=== PATIENT | female | born 2000 | race Caucasian/White ===

== ENCOUNTER 2021-12-05 11:50 | Inpatient (IN) ==
[~2021-12-05 11:50] MED LIST: Azithromycin 500 MG in 0.9 % Sodium Chloride 250 ML IVPB PRN; CeFAZolin 2,000 MG/120 ML BAG IVPB ONE; Famotidine 20 MG/2 ML VIAL IVP ONE; Metoclopramide 10 MG/2 ML VIAL IVP ONE
[2021-12-05] MEDS ORDERED: Acetaminophen IV 1,000 MG/100 ML BAG IVPB PRN (12:09)
[2021-12-05] MEDS ORDERED: *HR* Meperidine 25 MG/ML SYRINGE IVP PRN (12:09)
[2021-12-05] MEDS ORDERED: *HR* HYDROmorphone PF 0.5 MG/0.5 ML SYRINGE IVP PRN (12:09)
[2021-12-05] MEDS ORDERED: *HR* Labetalol 20 MG/4 ML SYRINGE IVP PRN (12:09)
[2021-12-05] MEDS ORDERED: Promethazine 6.25 MG in Water for inj. (sterile) 20 ML IVPB PRN (12:09)
[2021-12-05] MEDS ORDERED: *HR* FentaNYL (PF) 100 MCG/2 ML VIAL ONE (12:17)
[2021-12-05] MEDS ORDERED: EPHEDrine 50 MG/ML VIAL ONE (12:17)
[2021-12-05] MEDS ORDERED: *HR* Morphine Sulfate/PF 10 MG/10 ML AMPUL ONE (12:17)
[2021-12-05] MEDS ORDERED: Ondansetron 4 MG/2 ML VIAL ONE (12:17)
[2021-12-05] MEDS ORDERED: *HR* Phenylephrine 10 MG/ML VIAL ONE (12:17)
[2021-12-05] MEDS ORDERED: *HR* Midazolam HCl 2 MG/2 ML VIAL ONE (12:18)
[2021-12-05] MEDS ORDERED: Ringers Solution, Lactated 1,000 ML ONE (12:21)
[2021-12-05] MEDS ORDERED: Acetaminophen IV 1,000 MG/100 ML BAG IVPB ONE (12:21)
[2021-12-05] MEDS ORDERED: Ketorolac 30 MG/ML VIAL ONE (12:21)
[2021-12-05] MEDS: Ringers Solution, Lactated 1,000 ML IVC SCH ×2 (12:25→13:13)
[2021-12-05] MEDS ORDERED: *HR* Oxytocin 10 UNIT/ML VIAL ONE (12:31)
[2021-12-05 12:37] LABS: Basophils % 0.4 %; Eosinophils # 0.1 K/mcL (0.0-0.6); Eosinophils % 0.8 %; Hematocrit 34.4 % (35.3-44.9); Hemoglobin 11.9 g/dL (11.5-15.4); Immature Granulocytes % 1.8 % (0-4); Lymphocytes # 1.7 K/mcL (0.6-4.6); Lymphocytes % 18.8 %; Mean Corpuscular HGB Conc 34.6 g/dL (31.6-35.5); Mean Corpuscular Volume 95.3 fL (83.0-100.0); Mean Platelet Volume 10.4 fL (9.4-12.4); Monocytes # 0.5 K/mcL (0.0-1.3); Monocytes % 5.3 %; Neutrophils # 6.6 K/mcL (1.6-8.9); Platelet Count 217 K/mcL (140-400); Red Blood Count 3.61 M/mcL (3.82-4.97); Red Cell Distribution Width 12.5 % (11.5-14.5); Segmented Neutrophils % 72.9 %
[2021-12-05 13:11] LABS: Influenza A PCR Negative (Negative); Influenza B PCR Negative (Negative); Resp. Syncytial Virus PCR Negative (Negative); SARS-CoV-2 by PCR (In House) Negative (Negative)
[2021-12-05 13:18] LABS: Amphetamine Screen,Urine Negative ng/mL (Cutoff=1000); Barbiturate Screen,Urine Negative ng/mL (Cutoff=200); Benzodiazepines Screen,Urine Negative ng/mL (Cutoff=200); Cannabinoid Screen,Urine Negative ng/mL (Cutoff = 50); Cocaine Screen,Urine Negative ng/mL (Cutoff= 300); Opiate Screen,Urine Negative ng/mL (Cutoff=300); Phencyclidine Screen,Urine Negative ng/mL (Cutoff=25)
[2021-12-05] MEDS ORDERED: *HR* OxyCODONE Immed Rel 5 MG TABLET PO PRN (17:32)
[2021-12-05] MEDS ORDERED: Oxytocin 30 UNIT/503 ML BAG IVC SCH (17:32)
[2021-12-05] MEDS ORDERED: Naloxone 0.4 MG/ML INJ IVP PRN (17:32)
[2021-12-05] MEDS ORDERED: Rho Immune Globulin 1,500 UNIT SYRINGE IM ONE (17:32)
[2021-12-05] MEDS ORDERED: Ondansetron 4 MG/2 ML VIAL IVP PRN (17:32)
[2021-12-05] MEDS: Ibuprofen 600 MG TABLET PO SCH (18:47)
[2021-12-05] MEDS: Acetaminophen 325 MG TABLET PO SCH (18:47)
[2021-12-05] MEDS ORDERED: *HR* Nalbuphine 10 MG/ML AMPUL IV PRN (22:04)
[2021-12-06] MEDS: Ibuprofen 600 MG TABLET PO SCH ×4 (03:04→21:17)
[2021-12-06] MEDS: Acetaminophen 325 MG TABLET PO SCH ×4 (03:04→21:18)
[2021-12-06 03:55] LABS: Basophils % 0.1 %; Hematocrit 29.9 % (35.3-44.9); Hemoglobin 10.7 g/dL (11.5-15.4); Immature Granulocytes % 0.7 % (0-4); Lymphocytes # 1.4 K/mcL (0.6-4.6); Lymphocytes % 9.2 %; Mean Corpuscular HGB Conc 35.8 g/dL (31.6-35.5); Mean Corpuscular Hemoglobin 33.3 pg (28.0-33.3); Mean Corpuscular Volume 93.1 fL (83.0-100.0); Mean Platelet Volume 10.5 fL (9.4-12.4); Monocytes # 0.8 K/mcL (0.0-1.3); Monocytes % 5.3 %; Platelet Count 224 K/mcL (140-400); Red Blood Count 3.21 M/mcL (3.82-4.97); Red Cell Distribution Width 12.1 % (11.5-14.5); Segmented Neutrophils % 84.7 %
[2021-12-06 04:01] LABS: White Blood Count 15.4 K/mcL (4.3-11.1)
[2021-12-06] MEDS: Prenatal Vit/FA 1 EACH TABLET PO SCH (08:14)
[2021-12-06] MEDS: Simethicone 80 MG TAB.CHEW PO PRN ×2 (08:46→23:32)
[2021-12-07] MEDS: Ibuprofen 600 MG TABLET PO SCH (03:29)
[2021-12-07] MEDS: Acetaminophen 325 MG TABLET PO SCH (03:30)
[2021-12-07 06:53] VITALS: BP 108/64; PULSE 78; TEMP 98.2; O2SAT 99
[2021-12-07] MEDS: Prenatal Vit/FA 1 EACH TABLET PO SCH (09:04)
== END 2021-12-07 11:40 | disposition home or self-care (01) | DRG 788 ==
LOC: 1NENULAB → 1NENUOBS 17:45
PROVIDERS: ADMIT Obstetrics & Gynecology; ATTEND Obstetrics & Gynecology